=== PATIENT | male | born 1985 | race Caucasian/White ===

== ENCOUNTER 2016-06-14 09:55 | Emergency (ER) | payer MEDICARE, MEDICAID ==
[2016-06-14] MEDS ORDERED: Mag-Al Plus 1200 MG/1200 MG/120 MG/30 ML UDCUP ONE (10:27)
[2016-06-14] MEDS ORDERED: Meclizine HCl 25 MG TAB ONE (10:27)
== END 2016-06-14 10:35 | disposition home or self-care (01) ==
LOC: MADERS 09:55
DX: H81.10 Benign paroxysmal vertigo, unspecified ear (principal); I10 Essential (primary) hypertension; Z72.0 Tobacco use; Z79.899 Other long term (current) drug therapy
CPT/HCPCS: 99283

== ENCOUNTER 2016-07-10 08:38 | Outpatient (CLI) | payer MEDICAID, MEDICARE ==
[2016-07-10 09:21] LABS: #Basophils 0.1 thou/uL (0.0-0.2); #Eosinphils 0.2 thou/uL (0.0-0.7); #Lymphocytes 1.7 thou/uL (1.20-3.40); #Monocytes 0.6 thou/uL (0.11-0.59); #Neutrophils 4.2 thou/uL (1.40-6.50); %Basophils 1.5 % (0.0-1.0); %Lymphocytes 24.9 % (21.0-51.0); %Monocytes 9.2 % (0.0-10.0); %Neutrophils 61.5 % (42.0-75.0); Hemoglobin 15.3 g/dL (14.0-18.0); Mean Corpuscular HGB CONC 34.8 g/dL (32.0-36.0); Mean Corpuscular Hemoglobin 29.8 pg (27.0-31.0); Mean Corpuscular Volume 85.6 fl (80.0-94.0); Mean Platelet Volume 7.7 fL (7.4-10.4); Platelet Count 198 thou/uL (130-400); RBC Distribution Width 11.8 % (11.5-14.5); Red Blood Cell (RBC) Count 5.15 mill/uL (4.70-6.10); White Blood Cell (WBC) Count 6.9 thou/uL (4.8-10.8)
[2016-07-10 10:17] LABS: Bilirubin Negative (Negative); Blood, Urine Negative (Negative); Clarity Clear (Clear); Glucose, Urine (Dipstick) Negative (Negative); Leukocyte Negative (Negative); Nitrite Negative (Negative); Protein, Urine (Dipstick) Negative (Neg-Trace); Specific Gravity, Urine 1.025 (1.005-1.030)
[2016-07-10 11:10] LABS: ALT (SGPT) 43 U/L (0-55); AST (SGOT) 17 U/L (5-34); Albumin 4.1 g/dL (3.5-5.0); Alkaline Phosphatase 86 U/L (40-150); Anion Gap 14 mmol/L (10-20); BUN (Urea Nitrogen) 17 mg/dL (8.9-20.6); Bilirubin, Total 0.4 mg/dL (0.2-1.2); Calc. Creatinine Clearance 0 mL/min (70-130); Calcium 9.1 mg/dL (7.8-10.44); Carbon Dioxide 23 mmol/L (22-29); Cardiac Risk 3.8 (Less than 4.5); Chloride 103 mmol/L (98-107); Cholesterol 133 mg/dL (< 200 Desired); Estimated GFR-MDRD Greater than 90; Globulin 2.6 g/dL (2.4-3.5); Glucose 100 mg/dL (70-105); HDL Cholesterol 35 mg/dL (>60 Neg Risk); LDL Cholesterol, Calculated 75 mg/dL; Potassium 4.1 mmol/L (3.5-5.1); Protein, Total 6.7 g/dL (6.0-8.3); Sodium 136 mmol/L (136-145); Triglycerides 116 mg/dL (Less than 150)
== END 2016-07-10 08:39 | disposition home or self-care (01) ==
LOC: MADLABBHPM 08:38
PROVIDERS: ATTEND Family Medicine
DX: E78.5 Hyperlipidemia, unspecified (principal); I10 Essential (primary) hypertension
CPT/HCPCS: 36415; 80053; 80061; 81001; 84443; 85025

== ENCOUNTER 2017-01-11 08:36 | Outpatient (CLI) | payer MEDICARE, MEDICAID ==
[2017-01-11 11:20] LABS: #Basophils 0.1 thou/uL (0.0-0.2); #Eosinphils 0.2 thou/uL (0.0-0.7); #Lymphocytes 1.7 thou/uL (1.20-3.40); #Monocytes 0.7 thou/uL (0.11-0.59); #Neutrophils 3.3 thou/uL (1.40-6.50); %Basophils 0.9 % (0.0-1.0); %Eosinophils 3.1 % (0.0-10.0); %Lymphocytes 29.2 % (21.0-51.0); %Monocytes 11.4 % (0.0-10.0); %Neutrophils 55.4 % (42.0-75.0); Hemoglobin 14.2 g/dL (14.0-18.0); Mean Corpuscular HGB CONC 34.6 g/dL (32.0-36.0); Mean Corpuscular Hemoglobin 29.8 pg (27.0-31.0); Mean Corpuscular Volume 86.2 fl (80.0-94.0); Mean Platelet Volume 7.4 fL (7.4-10.4); Platelet Count 182 thou/uL (130-400); RBC Distribution Width 12.2 % (11.5-14.5); Red Blood Cell (RBC) Count 4.77 mill/uL (4.70-6.10); White Blood Cell (WBC) Count 5.9 thou/uL (4.8-10.8)
[2017-01-11 11:26] LABS: INR-International Normal Ratio 0.9; PTT 28.5 SEC (22.9-36.1); Prothrombin Time 12.7 SEC (12.0-14.7)
[2017-01-11 11:32] LABS: ALT (SGPT) 51 U/L (8-55); AST (SGOT) 21 U/L (5-34); Alkaline Phosphatase 88 U/L (40-150); Anion Gap 14 mmol/L (10-20); BUN (Urea Nitrogen) 15 mg/dL (8.9-20.6); Calc. Creatinine Clearance 0 mL/min (70-130); Calcium 8.7 mg/dL (7.8-10.44); Carbon Dioxide 23 mmol/L (22-29); Cardiac Risk 3.8 (Less than 4.5); Chloride 104 mmol/L (98-107); Cholesterol 134 mg/dl (< 200 Desired); Estimated GFR-MDRD Greater than 90; Globulin 2.4 g/dL (2.4-3.5); Glucose 108 mg/dL (70-105); HDL Cholesterol 35 mg/dL (>60 Neg Risk); LDL Cholesterol, Calculated 77 mg/dL; Potassium 4.2 mmol/L (3.5-5.1); Protein, Total 6.4 g/dL (6.0-8.3); Sodium 137 mmol/L (136-145); Triglycerides 108 mg/dL (Less than 150)
[2017-01-11 11:57] LABS: Bilirubin, Total 0.3 mg/dL (0.2-1.2)
== END 2017-01-11 08:37 | disposition home or self-care (01) ==
LOC: MADLABBHPM 08:36
PROVIDERS: ATTEND Family Medicine
DX: E78.5 Hyperlipidemia, unspecified (principal); I10 Essential (primary) hypertension; T14.8XXA Other injury of unspecified body region, initial encounter
CPT/HCPCS: 36415; 80053; 80061; 84443; 85025; 85610; 85730

== ENCOUNTER 2017-04-29 21:15 | Emergency (ER) | payer MEDICARE, OTHER ==
[~2017-04-29 21:15] MED LIST: Iopamidol 370 76% 100 ML VIAL ONE; Sodium Chloride 0.9% 1,000 ML BAG ONE; Sodium Chloride 0.9% 100 ML BAG ONE
[2017-04-29] MEDS ORDERED: Ketorolac Tromethamine 30 MG/ML VIAL ONE (21:33)
[2017-04-29] MEDS ORDERED: Ondansetron HCl/PF 4 MG/2 ML Vial ONE (21:34)
[2017-04-29 21:52] LABS: #Basophils 0.1 thou/uL (0.0-0.2); #Eosinphils 0.1 thou/uL (0.0-0.7); #Lymphocytes 0.6 thou/uL (1.20-3.40); #Monocytes 0.6 thou/uL (0.11-0.59); #Neutrophils 10.8 thou/uL (1.40-6.50); %Basophils 0.7 % (0.0-1.0); %Eosinophils 0.9 % (0.0-10.0); %Lymphocytes 5.2 % (21.0-51.0); %Neutrophils 88.3 % (42.0-75.0); Hemoglobin 15.8 g/dL (14.0-18.0); Mean Corpuscular HGB CONC 33.7 g/dL (32.0-36.0); Mean Corpuscular Hemoglobin 29.1 pg (27.0-31.0); Mean Corpuscular Volume 86.5 fl (80.0-94.0); Mean Platelet Volume 7.1 fL (7.4-10.4); Platelet Count 242 thou/uL (130-400); RBC Distribution Width 12.1 % (11.5-14.5); Red Blood Cell (RBC) Count 5.42 mill/uL (4.70-6.10); White Blood Cell (WBC) Count 12.2 thou/uL (4.8-10.8)
[2017-04-29 21:55] LABS: Bilirubin Small (Negative); Blood, Urine Negative (Negative); Clarity Clear (Clear); Glucose, Urine (Dipstick) Negative (Negative); Leukocyte Negative (Negative); Nitrite Negative (Negative); Protein, Urine (Dipstick) 100 mg/dL (Neg-Trace); Specific Gravity, Urine 1.025 (1.005-1.030); pH, Urine 6.5 (5.0-9.0)
[2017-04-29 22:04] LABS: Bacteria/HPF None Seen HPF (None Seen); RBC/HPF 0-3 HPF (0-3); Squamous Epithelial 0-3 HPF (0-3); WBC/HPF 0-3 HPF (0-3)
--- NOTE | 2017-04-29 22:11 | RAD ---
TWO VIEW CHEST SERIES: Indication: Fever. FINDINGS: There is no consolidation, effusion, or pneumothorax. Cardiac silhouette is within normal limits in s ize. Osseous structures are intact. IMPRESSION: No focal consolidation. POS: [facility]
[2017-04-29 22:14] LABS: ALT (SGPT) 51 U/L (8-55); AST (SGOT) 25 U/L (5-34); Albumin 4.3 g/dL (3.5-5.0); Alkaline Phosphatase 94 U/L (40-150); Anion Gap 17 mmol/L (10-20); BUN (Urea Nitrogen) 14 mg/dL (8.9-20.6); Bilirubin, Total 0.6 mg/dL (0.2-1.2); Calc. Creatinine Clearance 0 mL/min (70-130); Carbon Dioxide 23 mmol/L (22-29); Chloride 102 mmol/L (98-107); Estimated GFR-MDRD Greater than 90; Globulin 3.1 g/dL (2.4-3.5); Glucose 123 mg/dL (70-105); Lipase 32 U/L (8-78); Potassium 4.1 mmol/L (3.5-5.1); Protein, Total 7.4 g/dL (6.0-8.3); Sodium 138 mmol/L (136-145)
--- NOTE | 2017-04-29 22:31 | CT ---
CT OF THE ABDOMEN AND PELVIS WITH CONTRAST: Comparison: 09-17-07 Clinical history: Pain. FINDINGS: There is evidence of fatty infiltration of the liver. Layering hyperdensity of the gallbladder indica harvey cholelithiasis. No hydronephrosis of the kidneys or evidence of adrenal mass. Spleen is unremarka ble. No miranda or pancreatic inflammation. The bowel is not opacified by contrast which precludes its a ssessment. No free air. The imaged lung bases reveal no consolidation or effusion. Regional skeletal structures are nonacute in appearance. IMPRESSION: 1. Fatty infiltration of the liver. 2. Cholelithiasis. 3. Additional details as above. POS: [facility]
[2017-04-29] MEDS ORDERED: Ampicillin/Sulbactam 3 GM VIAL ONE (22:46)
== END 2017-04-29 23:15 | disposition short-term general hospital (02) ==
LOC: MADERS 21:15
DX: R10.11 Right upper quadrant pain (principal); I10 Essential (primary) hypertension; F17.290 Nicotine dependence, other tobacco product, uncomplicated; Z79.899 Other long term (current) drug therapy
CPT/HCPCS: 36415; 71046; 74177; 80053; 81003; 81015; 83605; 83690; 85025; 87040; 94760; 96374; 96375; J0295; J1885; J2405; J7050

== ENCOUNTER 2017-11-03 10:58 | Emergency (ER) | payer MEDICARE, OTHER ==
--- NOTE | 2017-11-03 13:08 | RAD ---
LEFT ANKLE 3 VIEWS: HISTORY: Injury, left ankle pain. FINDINGS: The ankle mortise is maintained. No acute fracture or dislocation is identified. POS: [facility]
== END 2017-11-03 11:50 | disposition home or self-care (01) ==
LOC: MADERS 10:58
DX: S93.402A Sprain of unspecified ligament of left ankle, initial encounter (principal); I10 Essential (primary) hypertension; F17.200 Nicotine dependence, unspecified, uncomplicated; Z79.899 Other long term (current) drug therapy; X50.1XXA Overexertion from prolonged static or awkward postures, initial encounter

== ENCOUNTER 2019-12-27 15:45 | Emergency (ER) | payer MEDICARE, OTHER ==
[~2019-12-27 15:45] MED LIST changes: -Sodium Chloride 0.9% 1,000 ML BAG ONE; -Sodium Chloride 0.9% 100 ML BAG ONE
[2019-12-27] MEDS ORDERED: Sodium Chloride 0.9% 1,000 ML ONE (16:31)
[2019-12-27] MEDS ORDERED: Ondansetron PF 4 MG/2 ML Vial ONE (16:31)
[2019-12-27 17:11] LABS: #Lymphocytes 0.7 thou/uL (1.20-3.40); #Monocytes 0.6 thou/uL (0.11-0.59); #Neutrophils 6.7 thou/uL (1.40-6.50); %Basophils 0.6 % (0.0-1.0); %Eosinophils 0.1 % (0.0-10.0); %Lymphocytes 8.3 % (21.0-51.0); %Monocytes 7.6 % (0.0-10.0); %Neutrophils 83.4 % (42.0-75.0); Hemoglobin 14.7 g/dL (14.0-18.0); Mean Corpuscular HGB CONC 33.2 g/dL (32.0-36.0); Mean Corpuscular Hemoglobin 27.5 pg (27.0-31.0); Mean Corpuscular Volume 82.8 fL (78.0-98.0); Mean Platelet Volume 7.9 fL (7.4-10.4); Platelet Count 148 thou/uL (130-400); RBC Distribution Width 11.6 % (11.5-14.5); Red Blood Cell (RBC) Count 5.33 mill/uL (4.70-6.10); White Blood Cell (WBC) Count 8.1 thou/uL (4.8-10.8)
[2019-12-27 17:25] LABS: ALT (SGPT) 48 U/L (8-55); AST (SGOT) 28 U/L (5-34); Albumin 4.2 g/dL (3.5-5.0); Alkaline Phosphatase 84 U/L (40-110); Anion Gap 16 mmol/L (10-20); BUN (Urea Nitrogen) 12 mg/dL (8.9-20.6); Bilirubin, Total 0.3 mg/dL (0.2-1.2); Calc. Creatinine Clearance 0 mL/min (70-130); Calcium 8.6 mg/dL (7.8-10.44); Carbon Dioxide 25 mmol/L (22-29); Chloride 98 mmol/L (98-107); Estimated GFR-MDRD Greater than 90; Globulin 2.8 g/dL (2.4-3.5); Glucose 114 mg/dL (70-105); Potassium 3.7 mmol/L (3.5-5.1); Sodium 135 mmol/L (136-145)
--- NOTE | 2019-12-27 17:42 | CT ---
CT ABDOMEN AND PELVIS WITH CONTRAST: 12/27/19 INDICATION: Right lower quadrant abdominal pain. Nausea. COMPARISON: Comparison made to CT abdomen and pelvis 04/29/17. FINDINGS: Images through the lung bases reveal numerous pulmonary nodules in both lung bases. These are new whe n compared to the prior exam. The margins are ill-defined. Considerations include metastatic disease and diffuse nodular atypical infectious process. Recommend clinical correlation regarding pulmonary s ymptoms. Liver, spleen and pancreas unremarkable. Post cholecystectomy change. Stomach and duodenum unremarkab le. Adrenal glands normal. Kidneys unremarkable. Small bowel loops normal caliber. Appendix appears normal. Colon unremarkable. Aorta normal caliber. No adenopathy. No free fluid. Urinary bladder unremarkable. The osseous struct ures appear unremarkable. IMPRESSION: 1. Numerous pulmonary nodules in the lung bases as described above. Recommend clinical correlati on regarding pulmonary symptoms and follow-up with chest CT as indicated. 2. No acute intra-abdominal process identified. POS: [facility]
--- NOTE | 2019-12-27 18:25 | CT ---
CT CHEST WITHOUT CONTRAST: 12/27/19 INDICATIONS: Fever. Abnormal findings on lung gases on CT abdomen and pelvis. FINDINGS: There are numerous bilateral pulmonary nodule opacities which have ill-defined margins and many of wh ich have ground glass type density. No effusion. There is nonspecific mediastinal adenopathy without significant hilar adenopathy. IMPRESSION: Numerous bilateral pulmonary nodular opacities. Ill-defined margins with ground glass densities. Diff use COVID pneumonia is a consideration. Other atypical infectious processes are also considerations. Metastatic disease to the lungs is felt less likely given the history of fever, although not exclude d. POS: [facility]
[2019-12-29 10:57] LABS: SARS-CoV-2 MS2 Positive; SARS-CoV-2 N Gene Positive; SARS-CoV-2 S Gene Positive; SARS-CoV-2 by NAA DETECTED (NotDetected); SARS-CoV-2 orf1ab Positive
== END 2019-12-27 19:07 | disposition home or self-care (01) ==
LOC: MADERS 15:45
DX: U07.1 COVID-19 (principal); I10 Essential (primary) hypertension
CPT/HCPCS: 71250; 74177; 80053; 83605; 85025; 87040; 87804 ×2; U0003; 36415; 87635; 96374; J2405; J7050; Q9967

== ENCOUNTER 2020-01-03 02:24 | Emergency (ER) | payer MEDICARE, OTHER ==
[2020-01-03] MEDS ORDERED: Azithromycin 500 MG VIAL ONE ×2 (03:24→03:40)
[2020-01-03] MEDS ORDERED: Sodium Chloride 0.9% 1,000 ML ONE (03:24)
[2020-01-03] MEDS ORDERED: Sodium Chloride 0.9% 250 ML 250 ML ONE ×2 (03:24→03:40)
[2020-01-03] MEDS ORDERED: Dexamethasone 10 MG/ML VIAL ONE (03:24)
[2020-01-03] MEDS ORDERED: cefTRIAXone\\ROCEPHIN 1 GM VIAL ONE (03:24)
[2020-01-03] MEDS ORDERED: Ibuprofen 800 MG TAB ONE (03:24)
[2020-01-03 03:48] LABS: #Lymphocytes 0.6 thou/uL (1.20-3.40); #Monocytes 0.6 thou/uL (0.11-0.59); #Neutrophils 11.5 thou/uL (1.40-6.50); %Basophils 0.2 % (0.0-1.0); %Lymphocytes 4.8 % (21.0-51.0); %Monocytes 4.6 % (0.0-10.0); %Neutrophils 90.4 % (42.0-75.0); Hemoglobin 14.8 g/dL (14.0-18.0); Mean Corpuscular HGB CONC 34.4 g/dL (32.0-36.0); Mean Corpuscular Hemoglobin 28.4 pg (27.0-31.0); Mean Corpuscular Volume 82.5 fL (78.0-98.0); Platelet Count 238 thou/uL (130-400); RBC Distribution Width 10.8 % (11.5-14.5); Red Blood Cell (RBC) Count 5.23 mill/uL (4.70-6.10); White Blood Cell (WBC) Count 12.7 thou/uL (4.8-10.8)
[2020-01-03 04:07] LABS: ALT (SGPT) 55 U/L (8-55); AST (SGOT) 47 U/L (5-34); Albumin 3.7 g/dL (3.5-5.0); Alkaline Phosphatase 83 U/L (40-110); Anion Gap 20 mmol/L (10-20); BUN (Urea Nitrogen) 14 mg/dL (8.9-20.6); Bilirubin, Total 0.5 mg/dL (0.2-1.2); CK (CPK) 303 U/L (30-200); Calc. Creatinine Clearance 0 mL/min (70-130); Calcium 8.6 mg/dL (7.8-10.44); Carbon Dioxide 29 mmol/L (22-29); Chloride 84 mmol/L (98-107); Estimated GFR-MDRD Greater than 90; Globulin 3.5 g/dL (2.4-3.5); Glucose 122 mg/dL (70-105); Potassium 3.7 mmol/L (3.5-5.1); Protein, Total 7.2 g/dL (6.0-8.3); Sodium 129 mmol/L (136-145)
[2020-01-03] MEDS ORDERED: Enoxaparin Sodium 100 MG/ML SYRINGE ONE (04:23)
[2020-01-03] MEDS ORDERED: Aspirin 325 MG TAB ONE (04:23)
[2020-01-03] MEDS ORDERED: Sodium Chloride 0.9% 100 ML BAG ONE (07:10)
--- NOTE | 2020-01-03 08:53 | RAD ---
EXAM: CHEST ONE VIEW HISTORY: Chest pain. Covid positive. Elevated d-dimer. COMPARISON: CT thorax on 12/27/2019. FINDINGS: Cardiac silhouette is magnified by projection. There are diffuse increased interstitial and parenchym al airspace opacities seen throughout the lungs bilaterally with a few scattered nodular opacities within the lungs bilaterally. Findings are greater on the right. Findings are likely related to worse jil viral pneumonitis (Covid 19). No pleural fluid is seen.. The osseous structures are intact. IMPRESSION: Worsening viral pneumonitis (Covid 19).
--- NOTE | 2020-01-03 09:17 | CT ---
PRELIMINARY REPORT/[facility]/EMERGENCY AFTER HOURS PROCEDURE EXAM: CTA Chest with Intravenous Contrast CLINICAL HISTORY: COVID POSITIVE, ELEVATED D-DIMER TECHNIQUE: Axial CTA images of the chest with intravenous contrast. Three-dimensional MIP/volume rendered reform ations were performed. CONTRAST: With; 120 ml [id number] COMPARISON: None provided. Findings: Image degradation due to respiratory motion and suboptimal enhancement of the pulmonary art erial tree. Diffuse groundglass opacities noted throughout both lungs compatible with Covid pneumonia. No pleura l effusion or pneumothorax. Aorta is normal in caliber. No pulmonary emboli identified given the significant limitations of the study. No large central filling defects identified. No mediastinal fluid or fluid collections. No central mass lesions or adenopathy identified. A few scattered, nonspecific mediastinal lymph nod es are noted, largest measuring about 2 cm, presumably reactive Heart size is normal. Imaging through the upper abdomen is without acute abnormality. Impression: Extensive groundglass opacities throughout the lungs compatible with Covid pneumonia. Very limited f or evaluation of pulmonary emboli. No large central emboli are identified. ELECTRONICALLY SIGNED BY: Peng Armstrong MD Jan 03, 2020 5:25:35 AM CDT This report is intended for review by the ordering physician only, in accordance of law. If you recei ve this report in error, please call [facility] at [phone]. FINAL REPORT Emergent after hours CT angiogram thorax with IV contrast and 3-D reconstructions HISTORY: Chest pain. COVID positive. Elevated D-dimer. COMPARISON: CT thorax on 12/27/2019. IMPRESSION: 1. Diffuse groundglass opacities are seen throughout the lungs which have significantly increased com pared to prior study on 12/27/2019 where only scattered multifocal nodular groundglass densities were seen. Findings are likely related to worsening COVID pneumonia. 2. Suboptimal timing of the contrast bolus limiting evaluation for pulmonary emboli. Prominent respir atory motion is also present. No large filling defect is seen within the central pulmonary arteries to suggest pulmonary embolus. Pulmonary embolus involving the subsegmental and segmental pulmonary ar teries cannot be excluded. 3. Reactive mediastinal lymphadenopathy present with largest lymph node measuring 1.6 cm in short axi s dimension in the subcarinal region. 4. Findings are in agreement with preliminary report by [facility]. Transcribed Date/Time: 01/03/2020 9:31 AM
== END 2020-01-03 06:01 | disposition short-term general hospital (02) ==
LOC: MADERS 02:24
DX: U07.1 COVID-19 (principal); J12.89 Other viral pneumonia; I21.4 Non-ST elevation (NSTEMI) myocardial infarction; R09.02 Hypoxemia; I10 Essential (primary) hypertension; F17.200 Nicotine dependence, unspecified, uncomplicated
CPT/HCPCS: 71045; 71275; 80053; 82550; 82553; 83605; 83880; 84484; 85025; 85379; 86140; 87040; 93005; 94760; 96365; 96372; 96375; J0456; J0696; J1100; J1650; J3490; J7050

== ENCOUNTER 2020-11-25 04:36 | Emergency (ER) | payer MEDICARE, OTHER ==
[2020-11-25 05:10] LABS: #Basophils 0.1 thou/uL (0.0-0.2); #Eosinphils 0.3 thou/uL (0.0-0.7); #Lymphocytes 2.3 thou/uL (1.20-3.40); #Monocytes 0.8 thou/uL (0.11-0.59); #Neutrophils 6.9 thou/uL (1.40-6.50); %Basophils 1.2 % (0.0-1.0); %Eosinophils 2.6 % (0.0-10.0); %Lymphocytes 22.1 % (21.0-51.0); %Monocytes 7.6 % (0.0-10.0); %Neutrophils 66.5 % (42.0-75.0); Hemoglobin 15.7 g/dL (14.0-18.0); Mean Corpuscular HGB CONC 33.1 g/dL (32.0-36.0); Mean Corpuscular Hemoglobin 29.1 pg (27.0-31.0); Mean Corpuscular Volume 87.8 fL (78.0-98.0); Platelet Count 234 thou/uL (130-400); Red Blood Cell (RBC) Count 5.41 mill/uL (4.70-6.10); White Blood Cell (WBC) Count 10.4 thou/uL (4.8-10.8)
[2020-11-25] MEDS ORDERED: Ondansetron PF 4 MG/2 ML Vial ONE (05:12)
[2020-11-25] MEDS ORDERED: Morphine 4 MG/ML VIAL ONE (05:12)
[2020-11-25 05:33] LABS: ALT (SGPT) 35 U/L (8-55); AST (SGOT) 25 U/L (5-34); Albumin 4.3 g/dL (3.5-5.0); Alkaline Phosphatase 97 U/L (40-110); Anion Gap 15 mmol/L (10-20); BUN (Urea Nitrogen) 14 mg/dL (8.9-20.6); Bilirubin, Total 0.3 mg/dL (0.2-1.2); Calc. Creatinine Clearance 0 mL/min (70-130); Calcium 9.5 mg/dL (7.8-10.44); Carbon Dioxide 23 mmol/L (22-29); Chloride 106 mmol/L (98-107); Globulin 2.8 g/dL (2.4-3.5); Glucose 126 mg/dL (70-105); Potassium 4.4 mmol/L (3.5-5.1); Protein, Total 7.1 g/dL (6.0-8.3); Sodium 140 mmol/L (136-145)
[2020-11-25] MEDS ORDERED: Iopamidol 370 76% 100 ML VIAL ONE (06:26)
[2020-11-25] MEDS ORDERED: Ketorolac Tromethamine 30 MG/ML VIAL ONE (07:24)
[2020-11-25 07:41] LABS: Bilirubin Negative (Negative); Blood, Urine Moderate (Negative); Clarity Clear (Clear); Glucose, Urine (Dipstick) Negative (Negative); Ketone, Urine Negative (Negative); Leukocyte Negative (Negative); Nitrite Negative (Negative); Protein, Urine (Dipstick) Negative (Neg-Trace); Urobilinogen 0.2 mg/dL (Less than 2); pH, Urine 5.5 (5.0-9.0)
[2020-11-25 07:49] LABS: Bacteria/HPF Rare-Few HPF (None Seen); Squamous Epithelial 0-3 HPF (0-3); WBC/HPF 0-3 HPF (0-3)
== END 2020-11-25 08:32 | disposition home or self-care (01) ==
LOC: MADERS 04:36
DX: N13.2 Hydronephrosis with renal and ureteral calculous obstruction (principal); I10 Essential (primary) hypertension
CPT/HCPCS: 74177; 80053; 81003; 81015; 85025; 96374; 96375; J1885; J2270; J2405; Q9967

== ENCOUNTER 2023-02-11 18:28 | Emergency (ER) | payer OTHER ==
[2023-02-11] MEDS ORDERED: Ketorolac Tromethamine 30 MG/ML VIAL ONE (19:10)
== END 2023-02-11 20:14 | disposition home or self-care (01) ==
LOC: MADERS 18:28
DX: S30.0XXA Contusion of lower back and pelvis, initial encounter (principal); M79.81 Nontraumatic hematoma of soft tissue; I10 Essential (primary) hypertension; F17.200 Nicotine dependence, unspecified, uncomplicated; Z79.84 Long term (current) use of oral hypoglycemic drugs; Z79.899 Other long term (current) drug therapy; W10.9XXA Fall (on) (from) unspecified stairs and steps, initial encounter
CPT/HCPCS: 72100; 72220; 96372; J1885